=== PATIENT | female | born 1960 | race Caucasian/White ===

== ENCOUNTER 2017-04-16 06:49 | Day surgery (SDC) | payer BC ==
[2017-04-08 13:31] VITALS: BMI 23.5
[2017-04-16 08:12] VITALS: TEMP 98.6
[2017-04-16] MEDS ORDERED: MIDAZOLAM HCL 2 MG/2 ML SINGLE DOSE VIAL ONE (08:22)
[2017-04-16] MEDS ORDERED: LIDOCAINE HCL 2% (20ML MULTI-DOSE VIAL) NR ONE (08:40)
[2017-04-16] MEDS ORDERED: LIDOCAINE HCL 1%, 10 MG/ML (20ML VIAL) ONE (09:22)
[2017-04-16] MEDS ORDERED: methylPREDNISolone ACET (DEPO) 40 MG/1 ML VIAL ONE (09:22)
[2017-04-16] MEDS ORDERED: methylPREDNISolone ACET (DEPO) 40 MG/1 ML VIAL IM ONE (09:35)
[2017-04-16] MEDS ORDERED: LIDOCAINE HCL 1%, 10 MG/ML (50 mL VIAL) IJ ONE (09:35)
[2017-04-16 10:36] VITALS: BP 105/58; PULSE 73
[2017-04-16] MEDS ORDERED: oxyCODONE HCL 5 MG TABLET PO PRN (11:59)
[2017-04-16] MEDS ORDERED: ONDANSETRON 4 MG/2 ML VIAL IVPUSH PRN (11:59)
[2017-04-16] MEDS ORDERED: LACTATED RINGERS SOLUTION 1,000 ML IV SCH (12:00)
[2017-04-16] MEDS ORDERED: ACETAMINOPHEN 325 MG TABLET (FP) PO PRN (12:42)
--- NOTE | 2017-04-18 16:01 | OP ---
DATE OF OPERATION: 04/16/2017 LOCATION: [facility] SURGEON: Mc Mercedes MD OFFENSIVE COORDINATOR: SHANICE Torres PREOPERATIVE DIAGNOSIS: Left middle trigger finger/tenosynovitis. POSTOPERATIVE DIAGNOSIS: Left middle trigger finger/tenosynovitis. PROCEDURE: Release of left middle trigger finger. FINDINGS: Thickened A1 jorge with impingement upon flexor tendon. PROCEDURE: Informed consent was obtained. Patient taken to operating room, where the left upper extremity was prepped and draped in sterile fashion. Tourniquet was placed on the upper arm, inflated to 250 mmHg. Incision was made on the area of the A1 jorge. Soft-tissue dissection allowed for A1 jorge to be identified, paying careful attention not to damage the neurovascular structures. The A1 jorge was incised and then extended, released proximally and distally using blunt tenotomy scissors. A curved hemostat was then placed around the tendon minor fraying, which was debrided. The finger was taken through range of motion: no impingement noted. The wound was irrigated with copious amounts of irrigation and then closed with 4-0 nylon in single interrupted suture . MC MERCEDES M.D. [id number]
== END 2017-04-16 10:50 | disposition home or self-care (01) ==
LOC: FASU 06:49
PROVIDERS: ATTEND Orthopaedic Surgery
PROC: 0LN80ZZ Release Left Hand Tendon, Open Approach (ICD-10-PCS; principal; 2017-04-16 09:09)
DX: M65.332 Trigger finger, left middle finger (principal); M65.9 Synovitis and tenosynovitis, unspecified

== ENCOUNTER 2024-08-30 05:10 | Day surgery (SDC) | payer BC, OTHER ==
[2024-08-28 13:11] VITALS: BMI 25.2
[2024-08-30] MEDS ORDERED: ACETAMINOPHEN 325 MG TABLET (FP) PO PRN (09:27)
[2024-08-30] MEDS ORDERED: oxyCODONE HCL 5 MG TABLET PO PRN (09:27)
[2024-08-30] MEDS ORDERED: IBUPROFEN 400 MG TABLET (FP) PO PRN (09:27)
[2024-08-30] MEDS ORDERED: ONDANSETRON 4 MG/2 ML VIAL IVPUSH PRN (09:28)
[2024-08-30] MEDS ORDERED: PROPOFOL 20 ML ONE (10:23)
[2024-08-30] MEDS ORDERED: MIDAZOLAM HCL 2 MG/2 ML SINGLE DOSE VIAL ONE (10:24)
[2024-08-30] MEDS ORDERED: LACTATED RINGERS SOLUTION 1,000 ML IV SCH (10:45)
[2024-08-30] MEDS ORDERED: LIDOCAINE HCL/PF 2% SDV 5ML VIAL ONE (10:46)
[2024-08-30] MEDS ORDERED: ONDANSETRON 4 MG/2 ML VIAL ONE (10:46)
[2024-08-30] MEDS ORDERED: DEXAMETHASONE SOD PHOSPHATE 4 MG/1 ML VIAL ONE (10:46)
[2024-08-30] MEDS ORDERED: KETOROLAC TROMETHAMINE 30 MG/1 ML VIAL ONE (10:46)
[2024-08-30 13:03] VITALS: RESP 20
[2024-08-30 14:09] VITALS: BP 124/77; PULSE 64; TEMP 97.3
== END 2024-08-30 14:00 | disposition home or self-care (01) ==
LOC: JASU-SURG 05:10
PROVIDERS: ATTEND Obstetrics & Gynecology
PROC: 0UDB8ZZ Extraction of Endometrium, Via Natural or Artificial Opening Endoscopic (ICD-10-PCS; principal; 2024-08-30 10:00)
DX: N95.0 Postmenopausal bleeding (principal)
CPT/HCPCS: 82962; 86850; 86900; 86901; 88305-TC; 94760